=== PATIENT | female | born 1965 | race Caucasian/White ===

== ENCOUNTER 2017-10-26 05:50 | Day surgery (SDC) | payer OTHER ==
[~2017-10-26 05:50] MED LIST: CLIMARA1 EAC1 TD; SYNTHR PO
[2017-10-26] MEDS ORDERED: NAPROXEN SODIU550 MG PO (08:29)
== END 2017-10-26 10:30 | disposition home or self-care (01) ==
LOC: CIR.AMB 05:50
DX: N72 Inflammatory disease of cervix uteri (principal)

== ENCOUNTER 2019-06-17 06:35 | Day surgery (SDC) | payer OTHER ==
[~2019-06-17 06:35] MED LIST changes: +NAPROXEN SODIU550 MG PO
== END 2019-06-17 10:45 | disposition home or self-care (01) ==
LOC: AMB-ENDOS 06:35
DX: K64.2 Third degree hemorrhoids (principal); Z12.11 Encounter for screening for malignant neoplasm of colon